=== PATIENT | female | born 1930 | race Caucasian/White ===

== ENCOUNTER 2016-11-27 19:42 | Inpatient (IN) | payer MEDICARE, BC ==
[~2016-11-27] VITALS: Ht 162.6 cm; Wt 59.1 kg
[2016-11-27 23:56] LABS: BASOPHILS 0.3 % (0.0-2.0); EOSINOPHILS 1.2 % (0-7); HEMATOCRIT 39.1 % (36.0-48.0); HEMOGLOBIN 13.5 g/dL (12-16); IMMATURE GRANULOCYTES 0.3 % (0-5); LYMPHOCYTES 17.1 % (15-50); MCHC 34.5 g/dL (31.0-37.0); MCV 86.9 fL (80.0-100.0); MEAN PLATELET VOLUME 10.9 fL (7.4-10.4); MONOCYTES 8.2 % (2-11); NEUTROPHILS 72.9 % (40-80); PLATELET COUNT 264 10x3/uL (130-400); WBC 7.7 10x3/uL (4.8-10.8)
[2016-11-28 00:03] LABS: APPEARANCE HAZY (CLEAR); BILIRUBIN NEGATIVE (NEGATIVE); COLOR YELLOW (YELLOW); GLUCOSE 1000 mg/dL (NEGATIVE); KETONE NEGATIVE (NEGATIVE); LEUKOCYTE ESTERASE NEGATIVE (NEGATIVE); NITRITE NEGATIVE (NEGATIVE); PROTEIN NEGATIVE (NEGATIVE); UROBILINOGEN NORMAL (NORMAL)
[2016-11-28 00:25] LABS: ALBUMIN 3.2 g/dL (3.4-5.0); ANION GAP 11.7 mmol/L (8-16); BILIRUBIN - TOTAL 0.99 mg/dL (0.2-1.3); CALCIUM 8.7 mg/dL (8.5-10.1); POTASSIUM - SERUM 3.7 mmol/L (3.5-5.1); PROTEIN - SERUM 7.1 g/dL (6.4-8.2)
--- NOTE | 2016-11-28 00:45 | NUR ---
RECEIVED TO ROOM 2126 ALERT AND ORIENTED X3 87 Y/O FEMALE UNDER DR LOJA CARE FOR IDDM AND RECENT FALLS VIA W/C FROM ER. ORIENTATION TO UNIT ROOM, BED, C/L, TV PHONE, BR GIVEN WITH UNDERSTANDING VERBALIZED. HOB UP SR UP X2, C/L IN REACH. ON FALL PRECAUTIONS HAS HAD RECENT FALLS AT HOME, BED ALARM IS ON AND WORKS, NONSKID SOCKS GIVEN. CONTINUE TO MONITOR.
[2016-11-28 02:57] VITALS: BP 184/74; BMI 21.2
[2016-11-28 05:45] VITALS: BP 151/63
[2016-11-28 07:57] VITALS: BP 183/63
--- NOTE | 2016-11-28 08:44 | NUR ---
CHANGED SCHEDULE OF PTS HOME LONG ACTING INSULIN R/T HER NORMALLY TAKING IT AT NIGHT ON HER HOME SCHEDULE. PROVIDED PT WITH 16 UNITS OF FAST ACTING INSULIN PER SS.
--- NOTE | 2016-11-28 09:00 | NUR ---
PT LEFT FLOOR FOR MRI VIA WHEELCHAIR.
--- NOTE | 2016-11-28 09:00 | NUR ---
0730-PT ALERT IN THE BED. IV TO LEFT FA. PT HAS NO NEEDS AT THIS TIME. WILL CONTINUE TO MONITOR.
--- NOTE | 2016-11-28 09:36 | NUR ---
Patient Name: RAJI DOW Admission Status: ER Accout number: [id number] Admission Date: 11-27-2016 : 1930 Admission Diagnosis: Attending: KALEB Current LOS: 1 Anticipated DC Date: TO BE DETERMINED Planned Disposition: TO BE DETERMINED Primary Insurance: MEDICARE A & B Discharge Planning Comments: CM RECEIVED ORDER FOR DISCHARGE PLANNING / ASSISTANCE AT HOME, ATTEMPTED TO MEET WITH PT FOR INITIAL ASSESSMENT OF DISCHARGE NEEDS. PT WAS NOT IN ROOM AT APPROXIMATELY 0930 HOURS. CM ADVISED BY STAFF PT IS OUT FOR MRI. CM TO ATTEMPT ASSESSMENT OF PT AT A LATER TIME. Napper Grinder: Austin Coyle
--- NOTE | 2016-11-28 10:17 | NUR ---
PT BACK ON UNIT FROM MRI VIA WHEELCHAIR.
[2016-11-28 11:27] VITALS: BP 150/63
[2016-11-28 13:19] VITALS: Ht 162.6 cm; Wt 59.1 kg
--- NOTE | 2016-11-28 14:32 | NUR ---
Patient Name: RAJI DOW Admission Status: ER Accout number: [id number] Admission Date: 11-27-2016 : 1930 Admission Diagnosis: Attending: KALEB Current LOS: 1 Anticipated DC Date:11-28-2016 Planned Disposition: Home with Home Health Primary Insurance: MEDICARE A & B PLANNED EXTERNAL PROVIDER: TO BE DETERMINED BY PATIENT Discharge Planning Comments: * Is the patient Alert and Oriented? Yes 0 * How many steps to enter\\exit or inside your home? RAMP 0 * PCP DR. LOJA 0 * Pharmacy [facility] 0 * Preadmission Environment Home Alone 0 * ADLs Independent 0 * Equipment Bedside Commode Glucometer Rolling Walker Shower Chair Walker Wheelchair 0 * Other Equipment [facility] - MEDICAL EQUIPMENT PROVIDER 0 * List name and contact numbers for known caregivers / representatives who currently or will assist patient after discharge: ELENA CAPPS, SON, YURI GIFFORD, DTR, HOUSTON RHODES, DTR, 0 * Community resources currently utilized Other 0 * Please name any agencies selected above. SENIOR TUNNEL WORK[employer] (AREA AGENCY ON AGING) 2 DAYS PER WEEK, 4 HOURS PER DAY 0 * Additional services required to return to the preadmission environment? Yes * Can the patient safely return to the preadmission environment? Yes 0 * Has this patient been hospitalized within the prior 30 days at any hospital? No 0 CM RECEIVED ORDER FOR ASSISTANCE AT HOME. CM MET WITH PT AND DAUGHTER, YURI, IN ROOM TO DISCUSS DISCHARGE PLANNING AND NEEDS. PT REPORTS LIVING AT HOME INDEPENDENTLY AND ALONE. PT HAS WALKER WITH WHEELS AND 4 WHEELED WALKER WITH SEAT AT HOME. 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 PT WOULD LIKE TO USE [facility] IF ANY FURTHER EQUIPMENT IS NEEDED. 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 PT HAS NO OUTSIDE SERVICES ASSISTING IN THE HOME. PT'S DAUGHTER CONCERNED ABOUT PT HAVING A FALL 5 WEEKS AGO AND THEN ANOTHER YESTERDAY AT HOME. DAUGHTER REPORTS THAT PT'S SON, ELENA, WILL HAVE HIS HOME READY FOR PT IN 3-4 WEEKS AND WILL MOVE PT TO [place] WITH HE AND HIS WHO WILL BE ABLE TO STAY AT HOME AND ASSIST PT NEEDED. PT REPORTS PLAN TO GO HOME UNTIL HER SON IS READY FOR HER. CM DISCUSSED AVAILABILITY OF HOME HEALTH, REHAB SERVICES AND MEDICAL EQUIPMENT. PT DOES NOT WANT TO CONSIDER INPATIENT REHAB OR SKILLED NUSING REHAB. PT WILL CONSIDER HOME HEALTH AND WILL THINK ABOUT WHAT COMPANY SHE WOULD LIKE TO USE. PT REPORTS FAMILY WILL PICK HER UP FOR DISCHARGE HOME. CM PROVIDED LISTING OF PERSONAL CARE AGENCIES AND EXPLAINED THAT INSURANCE WILL NOT PAY FOR THE QUILL CLEANER SERVICES; PT REPORTS BEING "POOR" AND CANNOT AFFORD THE SERVICES. CM PROVIDED PT WITH CHOICE LETTERS FOR [facility]ITIES AND HOME HEALTH FOR [facility] [place]. PT WILL NOT CONSIDER OUT OF HOME PLACEMENT, WOULD CONSIDER HOME HEALTH SERVICES. PT'S SON TO CONTINUE MAKING ARRANGEMENTS TO MOVE PT IN 3-4 WEEKS TO HIS HOME IN [place]. CM WAITING PT SELECTION OF HOME HEALTH COMPANY AND PHYSICIAN ORDERS. Foley Artist: Austin Coyle
[2016-11-28 15:35] VITALS: BP 117/50
--- NOTE | 2016-11-28 16:27 | HP ---
PATIENT: RAJI DOW MEDICAL RECORD: [id number] ACCOUNT: [id number] LOCATION:[facility] D2126 : 31 ADMISSION DATE: 11/27/16 HISTORY AND PHYSICAL EXAMINATION REASON FOR ADMISSION: Fall with back pain and uncontrolled diabetes. HISTORY OF PRESENT ILLNESS: The patient is an 86-year-old female with macular degeneration, diabetes mellitus and peripheral neuropathy. She had fallen in September 2014 and at [facility] was noted to have a slight L1 compression fracture. That has caused significant pain and difficulty with her ambulating. She was sent home to bed rest. I have seen her in followup and scheduled her for physical therapy, which she had begun last week. She was on therapy yesterday and felt like her blood sugar was low. She ate some crackers and in fact, it was over 580. Physical therapy referred her to me and I directed her to be admitted to the hospital for diabetic control and she refused. She was given 12 units of Humalog and was to be seen back this morning to follow up on her blood sugar. She said she was on her walker last night, was walking in her kitchen, she tripped over the rug, fell onto her back and is having increased lower back pain, above her previous L1 site. Denies radiculopathy. Additionally, she has had a psychosocial issue. She cannot really live at home currently due to her disabilities. She wants to she says and in her home. Her daughters both living here, but work time study statistician and cannot care for her. She therefore elected to move to [place] in the next 2-3 weeks to live with her son and [id number]. [id number] does not work, so she could help take care of her. That has been a source of stress for her. She did tell me yesterday that she just did not really care if she live or . She has no suicidal plan. She has never been suicidal. She has a long history of depression and is currently on Paxil for that. In the ED, her blood sugar was in the low 200s. 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 PAST SURGICAL HISTORY: She has had bilateral cataract surgery and tonsillectomy. FAMILY HISTORY: Mother at 79 due to colon cancer. Father elderly age from prostate cancer. ALLERGIES: CODEINE, PENICILLIN, AND SULFA. HOME MEDICATIONS: Toujeo SoloStar insulin 42 units subQ q.a.m., losartan 100 mg p.o. daily, Paxil 20 mg p.o. daily, levothyroxine 50 mcg p.o. before breakfast, amlodipine 5 mg daily, glyburide 5 mg 2 tabs b.i.d. p.c., metformin 500 mg 2 tabs by mouth b.i.d., and nitrofurantoin 100 mg tablet daily. SOCIAL HISTORY: Nonsmoker, nondrinker, lives alone, but does have 2 daughters living in town. She relies on friends to get her to and from the doctor. REVIEW OF SYSTEMS: HISTORY AND PHYSICAL [id number] RAJI DOW GENERAL: She has had fatigue without fever and no weight loss. HEENT: No recent new visual change, but is nearly blind in her left eye, has poor vision on the right. Denies hearing difficulty or speech problems. RESPIRATORY: Denies shortness of breath, cough, or sputum production. CARDIAC: No exertional chest pain, claudication, or edema. GASTROINTESTINAL: No nausea, vomiting, change in stools, or blood per rectum. GENITOURINARY: No incontinence or dysuria. GYNECOLOGIC: No vaginal bleeding. 3. MUSCULOSKELETAL: Has significant pain in her upper lumbar spine, worse with ambulating. NEUROLOGIC: Remote history of stroke without residual except for poor memory. She admits to poor balance. She has a lot to deal with her neuropathy in her legs and feet and her vision problems. PSYCHIATRIC: She admits to depressed mood and says she really does not care if she lives or dies. PHYSICAL EXAMINATION: VITAL SIGNS: Temperature 99.1 Fahrenheit orally, pulse of 80 and regular, respirations are 18, blood pressure 165/66 with a sat of 96% on room air. HEENT: Normocephalic. Eyes are clear with lens implants noted OU. Sclerae nonicteric. NECK: Supple, without bruits noted. No thyromegaly. CHEST: Clear without wheeze or rales or chest wall tenderness. HEART: Regular rate with I/ systolic ejection murmur in the aortic area. BACK: Shows back to be fairly straight with some pain in the L1-L2 paralumbar distribution, right greater than left. No bruising is noted. ABDOMEN: Soft. No organomegaly or tenderness. GYNECOLOGIC: Deferred. EXTREMITIES: No CC&E. She has negative straight leg bilaterally. Knee showed crepitus on flexion and extension, but no effusion or heat. NEUROLOGIC: She is oriented to person and place, but not time. She cannot subtract serial sevens. Motor and sensory is intact grossly, but she walks with a walker in a forward position and is very unsteady. PSYCHIATRIC: She admits to depressed mood and says she does not care if she lives or dies. She denies any suicidal thoughts or ideation. LABORATORY DATA: Blood sugars 291, was 580 in the office yesterday. Pertinent lab, white count 7700 with an H&H of 13.5 and 39.1, and neutrophils are 72.9. Potassium is 3.7, BUN and creatinine are 29 and 1.0. Glucose as mentioned above. Liver functions are normal. Albumin is low at 3.2. Urinalysis shows glycosuria, otherwise unremarkable. DIAGNOSTIC DATA: X-rays of the thoracic and lumbar spine are currently pending. She has known previous L1 compression fracture. ASSESSMENT: 1. Multiple falls with L1 compression fracture. 2. Macular degeneration affecting balance. 3. Diabetic peripheral neuropathy affecting gait and increasing fall risk. 4. Depression. 5. Uncontrolled diabetes mellitus, type 2. 6. Hypertension. 7. Hypothyroidism. PLAN: She will be hospitalized, placed on strict diabetic diet, diabetic HISTORY AND PHYSICAL [id number] RAJI DOW education, and sliding scale insulin. Physical therapy consult. Review x-rays with radiology, further workup to follow. We will also get psychiatric evaluation because of her depressive symptoms and mention of hopelessness. I have talked to one of her daughters concerning her social situation. She does confirm she is planning to move at [place] because of better family assistance there. TRANSINT:[id number] Voice Confirmation ID: [id number] DOCUMENT ID: [id number] SYLVIA LOJA MD at 1627 CC: [id number] DICTATION DATE: 11/28/16 3259 STEEL TURNER: 11/28/16 0904 ADM IN [facility] [address] [place] [address]
[2016-11-28] MEDS ORDERED: COZAAR100 MG PO (17:48)
[2016-11-28] MEDS ORDERED: TOUJEO SOL300 UNIT/1 SC (17:48)
[2016-11-28] MEDS ORDERED: NORVASC5 MG PO (17:49)
[2016-11-28] MEDS ORDERED: CYMBALTA60 MG PO (17:49)
--- NOTE | 2016-11-28 17:51 | NUR ---
D/C PTS PAXIL PER ORDER. ADDED NORVASC 5MG DAILY PER VERBAL ORDER AND PT NORMALLY TAKES AT HOME. MED REC COMPLETED AND MOST ACCURATE PER PATIENTS KNOWLEDGE. PT SITTING UP ON EDGE OF BED AND DENIES ANY PAIN OR CURRENT NEEDS AT THIS TIME. CL IN REACH, BED IN LOWEST, SIDE RAILS X2. WILL CPOC.
--- NOTE | 2016-11-28 19:38 | NUR ---
RESUMED CARE OF PT, LYING IN BED RESPIRAITONS EVEN AND UNLABORED ON ROOM AIR. LEFT WRIST SALINE LOCKED. CALL LIGHT IN REACH. WILL CONTINUE TO MONITOR. SEE NURSE ASSESSMENT.
[2016-11-28 20:24] VITALS: BP 174/71
--- NOTE | 2016-11-28 21:55 | CN ---
PATIENT NAME:RAJI DOW MEDICAL RECORD: [id number] : 31 LOCATION:[facility] D.2126 ADMIT DATE: 11/27/16 ACCOUNT: [id number] CONSULTING PHYSICIAN: ETTA BARNEY III, MD REFERRING PHYSICIAN: SYLVIA LOJA MD DATE OF CONSULTATION: 11/28/2016 FINDINGS: This is one of numerous lifetime psychiatric contacts for this 86-year-old single white female. This patient was admitted earlier today with complications from her diabetes and recent fall. She has multiple ongoing medical problems including peripheral neuropathy, hypertension, hypothyroidism and so forth. Consultation was requested because the patient is dealing with chronic depression, which has been exacerbated by recent events. Because of her disability, the patient is facing the prospect of moving away from [place] where she has lived her entire adult life. She has plans to move in with her son who lives in [place]. She has 2 daughters that live in [place], but both are employed air pollution control engineer and cannot be available for constant monitoring such as what she requires. The patient has as mentioned she has had falls. She has difficulty with controlling her blood sugar and other ongoing issues as well. The patient has been under psychiatric care for many years. In fact, I saw her as an outpatient in the . Currently, she is being treated with Paxil, but states that she feels that she is not receiving any benefit from it whatsoever. She does admit to thoughts of . She states that she would not harm herself, but does express a passive wish to soon simply because of her numerous difficulties. She has expressions of hopelessness and helplessness and states that she does not take much pleasure in things anymore. She also complains of poor concentration and sleep disturbance. On exam, the patient's mood is dysphoric. Affect is somewhat hard and brittle. Speech is fairly fluent. Content of thought as noted above. 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 DIAGNOSTIC IMPRESSION: AXIS I: Major depressive disorder -- recurrent. PLAN: 1. We will discontinue Paxil and begin Cymbalta 30 mg daily. This is a dual action antidepressant and may afford her some benefit. 2. We will follow with you as needed. TRANSINT:[id number] Voice Confirmation ID: [id number] DOCUMENT ID: [id number] CONSULT REPORT [id number] RAJI DOW III, ETTA Josue MD at 2155 CC: [id number] DICTATION DATE: 11/28/16 1158 CYTOGENETIC TECHNICIAN: 11/28/16 1323 ADM IN [facility] [address] [place] [id number]
[2016-11-29 00:14] VITALS: BP 121/58
--- NOTE | 2016-11-29 00:36 | NUR ---
PLASTIC BOAT PATCHER AT BEDSIDE TO OBTAIN VITALS, CALL LIGHT IN REACH. WILL CONTINUE WITH PLAN OF CARE.
--- NOTE | 2016-11-29 03:12 | NUR ---
LYING IN BED WITH EYES CLOSED, CALL LIGHT IN REACH. WILL CONTINUE TO MONITOR.
[2016-11-29 04:44] VITALS: BP 153/70
--- NOTE | 2016-11-29 06:35 | NUR ---
NO CHANGES FROM PREVIOUS ASSESSMENT, CALL LIGHT IN REACH. WILL CONTINUE TO MONITOR.
--- NOTE | 2016-11-29 07:44 | NUR ---
ASSESSMENT COMPLETED. UP IN BEDSIDE CHAIR. DENIES ANY NEEDS EXCEPT WANTING SOMEONE TO SIT IN ROOM WITH HER. LEFT WRIST SL. NO TELEMERTY ON. WILL MONITOR
--- NOTE | 2016-11-29 07:44 | NUR ---
UP SOB WITH CALL LIGHT IN REACH. JEFE NEEDS AT THIS TIME. WILL MONITOR.
[2016-11-29 08:26] VITALS: BP 171/61
[2016-11-29 11:56] VITALS: BP 188/62
--- NOTE | 2016-11-29 14:43 | NUR ---
Patient Name: RAJI DOW Encounter No: [id number] : 1930 Primary Insurance: MEDICARE A & B Anticipated DC Date: 11-29-2016 Planned Disposition: Inpatient Rehab External Planned Provider: [facility] INPATIENT REHAB DCP follow-up note: CM RECEIVED SPOKE TO DR. LOJA WHO REPORTS PT IS WILLING TO GO TO INPATIENT REHAB AT [facility] AND HE WOULD LIKE TO SEND HER. CM SPOKE TO PT AND DAUGHTER IN ROOM. PT REPORTS WILLINGNESS FOR INPATIENT REHAB AT [place]. IMPORTANT MESSAGE FROM MEDICARE PROVIDED AND EXPLAINED. CM NOTIFIED SONIA OF INPATIENT REHAB OF CONSULT ORDER AND INPATIENT REHAB PRESCREENING ORDER. CM WAITING COMPLETION OF INPATIENT REHAB PRESCREENING AND ADMISSION DETERMINATION FROM [facility] INPATIENT REHAB. Austin Coyle, CASE MANAGEMENT
[2016-11-29 15:21] VITALS: BP 142/61
[2016-11-29] MEDS ORDERED: CARDURA2 MG PO (17:26)
[2016-11-29] MEDS ORDERED: SYNTHROID50 MCG PO (17:26)
[2016-11-29] MEDS ORDERED: PATOWN SC (17:27)
[2016-11-29] MEDS ORDERED: XANAX0.25 MG PO (17:27)
--- NOTE | 2016-11-29 19:00 | NUR ---
LYING QUIETLY. NO DISTRESS NOTED. WILL MONITOR
[2016-11-29 21:33] VITALS: BP 109/43
[2016-11-30 01:06] VITALS: BP 112/45
[2016-11-30 05:24] VITALS: BP 101/48
--- NOTE | 2016-11-30 07:33 | NUR ---
ASSESSMENT COMPLETED. LEFT WRIST SL. AWAKE AND ALERT. PT GETS UP WITH ASSIST. DENIES ANY NEEDS. CALL LIGHT IN REACH WITH SR UP. WILL MONITOR
--- NOTE | 2016-11-30 11:57 | NUR ---
BS 267. TREATED. DENIES ANY NEEDS. CALL LIGHT IN REACH WITH SR UP.
[2016-11-30 12:00] VITALS: BP 119/45
[2016-11-30] MEDS ORDERED: HUMULIN R100 U/ML SC (13:04)
--- NOTE | 2016-11-30 13:51 | NUR ---
PT DISCHARGED TO REHAB. IV DCD WITH TIP INTACT. REPORT GIVEN TO VADIM JEONG. TO REHAB PER WHEELCHAIR
[2016-11-30] MEDS ORDERED: LANTUS INSULIN10 ML SQ (14:44)
--- NOTE | 2016-12-01 08:03 | DS ---
PATIENT:RAJI DOW :[birth year] MEDICAL RECORD: [id number] DISCHARGE SUMMARY ADMISSION DATE: 11/28/16 DISCHARGE DATE: 11/30/16 DISCHARGE DIAGNOSES: 1. Subacute lumbar 1 compression fracture. 2. Intractable pain. 3. Frequent falls. 4. Uncontrolled diabetes mellitus. 5. ____ hypertension. 6. Depression with suicidal ideation. HOSPITAL COURSE: An 86-year-old female that had a lumbar compression fracture, initially diagnosed at [facility] 6 weeks ago. There is a 50% compression fracture. She deferred IR treatment. She had been in physical therapy because of increasing pain and had been much more despondent with depression and had not been taking care of her diabetes. She is in our office the day before admission with blood sugar of 580, postprandial. We gave her 12 units of regular insulin, attempted to admit her then, but she refused. She has been having intractable pain at that time and had been in physical therapy. That night, she tripped and fell again and had relented to come into the hospital. Blood sugar was over 200. She was placed on sliding scale insulin. She placed at bed rest, given Toradol for pain. This patient related that she did not wish to live any further. She is planning to live with her son Layton, but the fall had preclude that. She has a longstanding history of depression, therefore, psychiatric evaluation was undertaken with Dr. Lázaro Small. He has seen the patient previously, reviewed her long history of depression and switched from Paxil to Cymbalta. The patient's back pain is still moderately severe. She can walk, but has extreme fall risk and is very weak. Due to her high fall risk and recent fracture, MRI was obtained confirming the 50% L1 compression fracture and no other fractures. She has been accepted to rehab. Her family is strongly supportive of this. She will be in rehab at discharge and will go to live with her son in [place], [place]. DISCHARGE MEDICATIONS: Cardura 2 mg p.o. b.i.d., Xanax 0.25 q.4 p.r.n. anxiety, Synthroid 50 mcg p.o. 30 minutes a.c. breakfast, Cozaar 100 mg a day, Cymbalta 60 mg a day, and Norvasc 5 mg p.o. daily. ACTIVITY: Progress as tolerated. DIET: ADA diet. Continue fingerstick blood sugars a.c. and h.s. with sliding scale and rehab. TRANSINT:[id number] Voice Confirmation ID: [id number] DOCUMENT ID: [id number] SYLVIA LOJA MD at 0803 CC: [id number] DICTATION DATE: 11/29/16 1730 SUPERVISOR PREPRESS: 11/30/16 1113 DIS IN 11/30/16 [facility] [address] [place] [address]
== END 2016-11-30 13:53 | DRG 638 ==
LOC: D.ER 19:42 → D.M2 23:10 → OBSVTIME 23:10 → D.M2 23:10
PROVIDERS: Physician Assistant; ADMIT Family Medicine
DX: E11.65 Type 2 diabetes mellitus with hyperglycemia (principal); F33.9 Major depressive disorder, recurrent, unspecified; M48.56XA Collapsed vertebra, not elsewhere classified, lumbar region, initial encounter for fracture; E11.40 Type 2 diabetes mellitus with diabetic neuropathy, unspecified; Z79.4 Long term (current) use of insulin; H35.30 Unspecified macular degeneration; E78.5 Hyperlipidemia, unspecified; I10 Essential (primary) hypertension; E03.9 Hypothyroidism, unspecified; M81.0 Age-related osteoporosis without current pathological fracture; K21.9 Gastro-esophageal reflux disease without esophagitis; Z91.81 History of falling; Z86.73 Personal history of transient ischemic attack (TIA), and cerebral infarction without residual deficits

== ENCOUNTER 2016-11-30 11:55 | Inpatient (IN) | payer MEDICARE, BC ==
[~2016-11-30] VITALS: Ht 162.6 cm; Wt 55.8 kg
[~2016-11-30 11:55] MED LIST: CARDURA2 MG PO; COZAAR100 MG PO; CYMBALTA60 MG PO; NORVASC5 MG PO; PATOWN SC; SYNTHROID50 MCG PO; TOUJEO SOL300 UNIT/1 SC; XANAX0.25 MG PO
[2016-11-30] MEDS ORDERED: HUMULIN R100 U/ML SC (13:04)
[2016-11-30 13:59] VITALS: BP 103/64
--- NOTE | 2016-11-30 14:10 | NUR ---
PT WAS ADMITTED TO REHAB UNIT ROOM 1113A BED. HOSPITAL STAFF BROUGHT PT IN WHEELCHAIR. PT IS STABLE WITH NO SIGNS OF ANY DISCOMFORT OR DISTRESS. VITAL SIGNS UPON ADMISSION WERE; TEMP. 97.9, PULSE 79, RESP. 15, B/P 103/64, 02SAT 97%. PT IS ALERT AND ORIENTED X 3. WILL BE MONITORING HER AND ASSISTING PRN WITH ADL'S.
[2016-11-30] MEDS ORDERED: LANTUS INSULIN10 ML SQ (14:44)
[2016-11-30 19:38] VITALS: BP 134/51
--- NOTE | 2016-11-30 20:40 | NUR ---
PT. IN BED WITH HOB UP FOR COMFORT WITH EYES CLOSED AND RESP. EVEN. PT. AWAKENS EASILY FOR ASSESSMENT. NO VOICED NEEDS AT THIS TIME AND HER CALL LIGHT IS WITHIN REACH.
--- NOTE | 2016-11-30 23:06 | NUR ---
PT. IN BED WITH HOB SLIGHTLY ELEVATED. EYES ARE CLOSED AND RESP. EVEN. CALL LIGHT WITHIN REACH.
--- NOTE | 2016-12-01 03:07 | NUR ---
PT. IN BED WITH HOB UP FOR COMFORT. EYES ARE CLOSED AND RESP. DEEP AND EVEN. CALL LIGHT REMAINS WITHIN HER REACH.
[2016-12-01 07:00] VITALS: BP 127/58
--- NOTE | 2016-12-01 08:15 | NUR ---
PT RESTING IN BED WITH EYES OPEN CALL LIGHT IN REACH NO PROBLEMS WILL MONITER
[2016-12-01 12:31] VITALS: Ht 162.6 cm; Wt 55.8 kg
--- NOTE | 2016-12-01 14:45 | NUR ---
PT RESTING IN BED WITH EYES OPEN CALL LIGHT IN REACH WILL MONITER
--- NOTE | 2016-12-01 18:15 | NUR ---
PT RESTING IN BED WITH EYES OPEN CALL LIGHT IN REACH NO PROBLEMS WILL MONITER
[2016-12-01 19:29] VITALS: BP 142/60
--- NOTE | 2016-12-01 19:40 | NUR ---
assisted pt to bathroom, sba. no s/s of acute distress, respirations regular and unlabored, pt conversive. requests an hs snack.
--- NOTE | 2016-12-02 00:10 | NUR ---
pt awake and states she is feeling not quite right, reviewed symptoms and pt stated she believes it is the pain in shoulder is why she woke up and that the light was off, turned on the light and medicated per request for pain
--- NOTE | 2016-12-02 01:00 | NUR ---
resting quietly with eyes closed, no s/s of acute distress. room light on as requested.
--- NOTE | 2016-12-02 04:07 | NUR ---
PT. IN BED AND LYING ON HER STOMACH WITH EYES CLOSED AND RESP. DEEP AND EVEN. PT. PREFERS TO SLEEP WITH THE LIGHT ON ABOVE HER BED. CALL LIGHT WITHIN REACH.
[2016-12-02 07:00] VITALS: BP 133/42
--- NOTE | 2016-12-02 07:30 | NUR ---
RESTING QUIETLY IN BED. CALL LIGHT IN REACH
--- NOTE | 2016-12-02 08:15 | NUR ---
PT EATING BREAKFAST ON SIDE OF BED CALL LIGHT IN REACH NO PROBLEMS WILL MONITER
--- NOTE | 2016-12-02 14:43 | NUR ---
PT RESTING IN BED WITH EYES OPEN CALL LIGHT IN REACH NO PROBLEMS WILL MONITER
--- NOTE | 2016-12-02 18:41 | NUR ---
PT RESTING IN BED WITH EYES OPEN CALL LIGHT IN REACH WILL MONITER
--- NOTE | 2016-12-02 19:30 | NUR ---
PT. IN BED WITH HOB SLIGHTLY ELEVATED AND IS WATCHING TV. ASSESSMENT COMPLETED AFTER ASSISTING PT. TO THE BR TO URINATE. PT. C/O HIP PAIN AND WOULD LIKE A PAIN PILL WITH TONIGHT'S MEDICATIONS. PT. ALSO REPORTS S/S INCREASE ANXIETY. PT. STATES SHE HAS HAD ANXIETY FOR YEARS BUT IS NOT MEDICATED FOR IT. INSTRUCTED PT. THAT SHE NEEDS TO TELL THE DOCTOR AND HER PCP, THE NEXT TIME SHE SEES THEM, ESPECIALLY IF THE EPISODES INCREASE IN FREQUENCY AND DURATION. PT. STATES SHE WILL. CALL LIGHT WITHIN REACH.
[2016-12-02 20:00] VITALS: BP 144/51
--- NOTE | 2016-12-02 23:02 | NUR ---
PT. IN BED AND LYING ON HER STOMACH TO SLEEP. EYES ARE CLOSED AND RESP. EVEN. PT. SLEEPS WITH HER BED LIGHT ON AT HER REQUEST. CALL LIGHT WITHIN REACH.
--- NOTE | 2016-12-03 04:50 | NUR ---
PT. IN BED WITH HOB UP FOR COMFORT WITH EYES CLOSED AND RESP. EVEN. CALL LIGHT WITHIN REACH.
--- NOTE | 2016-12-03 04:55 | NUR ---
PT. IN BED SLEEPING ON HER STOMACH. EYES CLOSED AND RESP. EVEN. CALL LIGHT WITHIN REACH.
[2016-12-03 07:25] LABS: BASOPHILS 0.4 % (0.0-2.0); EOSINOPHILS 3.8 % (0-7); HEMATOCRIT 39.6 % (36.0-48.0); HEMOGLOBIN 13.2 g/dL (12-16); IMMATURE GRANULOCYTES 0.2 % (0-5); LYMPHOCYTES 21.3 % (15-50); MCH 29.7 pg (26.0-34.0); MCHC 33.3 g/dL (31.0-37.0); MEAN PLATELET VOLUME 11.2 fL (7.4-10.4); MONOCYTES 8.9 % (2-11); NEUTROPHILS 65.4 % (40-80); PLATELET COUNT 224 10x3/uL (130-400); RBC 4.45 10x6/uL (4.00-5.40); RDW 13.2 % (11.5-14.5); WBC 4.7 10x3/uL (4.8-10.8)
[2016-12-03 07:34] LABS: CALC OSMOLALITY 283 mosm/kg (275-300); CALCIUM 9.1 mg/dL (8.5-10.1); CARBON DIOXIDE 28.1 mmol/L (21.0-32.0); CHLORIDE - SERUM 103 mmol/L (98-107); CREATININE - SERUM 0.6 mg/dL (0.6-1.3); POTASSIUM - SERUM 4.6 mmol/L (3.5-5.1); SODIUM 139 mmol/L (136-145); UREA NITROGEN 17 mg/dL (7-18); eGFR NON AFRICAN AMERICAN > 90 mL/min (90-120)
[2016-12-03 07:35] LABS: GLUCOSE 162 mg/dL (74-106)
[2016-12-03 08:00] VITALS: BP 170/67
--- NOTE | 2016-12-03 08:28 | NUR ---
PATIENT SITTING ON THE SIDE OF THE BED TO EAT BREAKFAST. DR. Liat AMIN INTO SEE PATIENT. NEW ORDERS RECEIVED
--- NOTE | 2016-12-03 10:50 | NUR ---
PATIENT DOWN IN REHAB ROOM. WORKING WITH PHYSICAL THERAPIST. DENIES ANY PAIN/DISC AT THIS TIME
--- NOTE | 2016-12-03 12:00 | NUR ---
GLUCOSE LEVEL 281. TEN UNITS OF SLIDING SCALE INSULIN GIVEN PER ORDER
--- NOTE | 2016-12-03 14:12 | NUR ---
PATIENT IS ALERT WITH SOME FORGETFULNESS NOTED. PATIENT IS A STAND BY ASST WITH WHEELED WALKER. WEARS BRIEF. STRESS INCONTINANCE. WOUND CONSULT FOR RIGHT FOOT, MACULES WITH RED AROUND AREA. STATES SHE WAS BITTEN BY FIRE ANTS.
--- NOTE | 2016-12-03 17:22 | NUR ---
GLUCOSE LEVEL 267. TEN UNITS OF SLIDING SCALE INSULIN GIVEN
--- NOTE | 2016-12-03 19:30 | NUR ---
PT RESTING, EYES CLOSED. AWOKE EASILY FOR ASSESSMENT, DENIES NEEDS. WCTM. BED LOW. CL IN REACH.
--- NOTE | 2016-12-03 20:21 | NUR ---
PT HS MEDS ADMINISTERED. PT ASSISTED TO BR. PT BACK IN BED NAD DENIES FURHTER NEEDS. WCTM. BED LOW. CLIN REACH.
[2016-12-03 20:45] VITALS: BP 175/77
--- NOTE | 2016-12-03 22:09 | NUR ---
PT RESTING, EYES CLOSED. BED LOW. CL IN REACH.
--- NOTE | 2016-12-03 22:25 | NUR ---
PT REQ AND REC'D PRN ULTRAM FOR 10/10 BACK/SHOULDER/HIP PAIN. WCTM. BED LOW. C GRACIE LANDRUM.
--- NOTE | 2016-12-04 00:35 | NUR ---
ASSISTED PT TO BR. PT BACK IN BED AND DENEIS FURHTER NEEDS. BED LOW. CL IN [facility].
--- NOTE | 2016-12-04 03:15 | NUR ---
ASSISTED PT TO BR. PT BACK IN BED AND DENIES FURHTER NEEDS. WCTM. BED LOW. CLIN REACH.
[2016-12-04 08:37] VITALS: BP 174/67
--- NOTE | 2016-12-04 08:55 | NUR ---
INTRODUCED SELF TO PT, MORNING MEDS GIVEN, PT TOLERATED WELL, WILL CONTINUE TO MONITOR, CALL LIGHT WITHIN REACH.
--- NOTE | 2016-12-04 11:35 | NUR ---
AFTERNOON MEDS GIVEN, PT TOLERATED WELL, PT IN THERAPY.
--- NOTE | 2016-12-04 13:06 | RHP ---
PATIENT: RAJI DOW MEDICAL RECORD: [id number] ACCOUNT: [id number] LOCATION[facility] : 31 ADMISSION DATE: 11/30/16 REHABILITATION HISTORY AND PHYSICAL EXAMINATION POST ADMISSION PHYSICIAN EXAMINATION DATE OF ADMISSION: 11/30/2016 ADMITTING DIAGNOSES: Compression fracture with bony edema, central disc perfusion at T1-T2 with canal narrowing and neural foraminal narrowing and canal stenosis at L1 through L5. HISTORY OF PRESENT ILLNESS: The patient is an 86-year-old female patient admitted with an L1 compression fracture and hyperglycemia. She has a history of macular degeneration, diabetes and peripheral neuropathy. She had fallen and at [facility] was noted to have a slight L1 compression fracture that was causing significant pain and difficulty with ambulating. She was sent home bed rest. She was sent for a followup and scheduled for physical therapy, which began last week. She was in therapy on November 26 and felt like her blood sugar was low, she had some crackers, in fact it was over 580. Physical therapy referred her to her PCP, Dr. Purvis, who wanted to admit her to the hospital for diabetic control and she refused. She was given 12 units of Humalog and was seen back this morning, the morning of admission, followed up her blood sugar that evening. She had been on a walker and was walking to the kitchen, she tripped over a rug, fell on to her back and started having increasing lower back pain at her previous L1 site. Denied radiculopathy. Additionally, she has had a psychosocial issue. She cannot really live at home currently due to her disabilities. She has previously was able to live alone, perform ADLs and walk with use of a rolling walker. Currently, secondary to her back pain and her eyesight has gotten so bad, she is moderate to max assist for ADLs and mobility. She wants to move to [place], [place] with her son, but needs to have her pain controlled and be able to perform her ADLs and ambulate with moderate independence assist while using a rolling walker. The only way that we can be able to get her do that is to get her here in rehab and work with her on that. COMORBIDITIES: In this patient include diabetes, hyperglycemia, peripheral neuropathy, hypothyroidism, macular degeneration, glaucoma, fatigue, weakness, major depressive disorder, hypertension, arthritis, frequent falls, previous CVA, osteoporosis and hyperlipidemia. PAST MEDICAL HISTORY: Includes multiple falls with compression fracture, macular degeneration, diabetic neuropathy, depression, uncontrolled diabetes, hypertension and hypothyroidism. PAST SURGICAL HISTORY: None. ALLERGIES: PENICILLIN, CODEINE AND SULFA. CURRENT MEDICATIONS: Include losartan 100 mg daily, Synthroid 50 mcg daily, Cymbalta 60 mg daily and amlodipine 5 mg daily. She is on Lantus 42 units daily. She is on intermittent low-resistant sliding scale. She is on Cardura 2 mg b.i.d. and alprazolam 0.25 mg q.4 hours p.r.n. HABITS: No alcohol or tobacco use. HISTORY AND PHYSICAL [id number] RAJI DOW FAMILY HISTORY: Noncontributory. SOCIAL HISTORY: The patient once again wants to move to [place] to live with her son and hopefully get back to some type of functional state that she can do this. REVIEW OF SYSTEMS: GENERAL: Does complain of some weakness. HEENT: Denies cold, cough, or congestion. CARDIOVASCULAR: Denies chest pain. PHYSICAL EXAMINATION: VITAL SIGNS: Stable, afebrile. GENERAL: An elderly female in no acute distress, alert upon exam. HEENT: Normocephalic and atraumatic. Mucosa moist. NECK: Supple. No lymphadenopathy. LUNGS: Clear at this time. HEART: Regular rate and rhythm. ABDOMEN: Benign. EXTREMITIES: No clubbing, cyanosis, or edema. NEUROLOGIC: She does have pain even with slight movement. ASSESSMENT: This is an 86-year-old female patient admitted to rehab with a working diagnosis of L1 compression fracture with bony edema, also some central disc perfusion and canal narrowing on her back. The patient has potential to make improvement. We instituted the following multidisciplinary therapies including to, but not limited to, physical, occupational, respiratory, speech, nutritional services, prosthetics and orthotics. Given her complex condition and risk for more complications, rehabilitation services cannot be provided at a low level of care such as a [place] facility. PLAN: 1. Admit to [facility] rehab for intensive inpatient therapy to include the following disciplines: A. Physical therapy to improve gait, all transfer skills and bed mobility to a modified independent level. B. Occupational therapy to improve activities of daily living to a modified independent level. C. Case management to assist with discharge planning and placement options. D. Nutrition to assist with nutritional needs. E. Rehabilitation nursing to assist in monitoring the patient's underlying medical conditions and to assist with any type of bowel or bladder management. 2. The patient's current medication and medical care will be continued. 3. The patient will be placed on standard fall precautions. 4. The patient's estimated length of stay is approximately 7-10 days. 5. Discuss this patient during care team staff meeting this week. 6. I am going to go ahead and check thyroid, calcium and also vitamin D levels and treat these appropriately. TRANSINT:[id number] Voice Confirmation ID: [id number] DOCUMENT ID: [id number] HISTORY AND PHYSICAL [id number] RAJI DOW SCOTT MD at 1306 CC: [id number] DICTATION DATE: 12/01/16 1352 TOOL MAKER: 12/01/16 1717 ADM IN [facility] [address] [place] [address]
--- NOTE | 2016-12-04 14:00 | NUR ---
Nutrition Follow Up: Pt reported that her appetite is great. She said that she has been ordering and drinking Glucerna. Pt is eating 83% meal avg on a diabetic diet. Wt stable. +BM 12/01/16. Labs noted - Glucose elevated. Meds noted including Lantus, Humalog. Rec continue current diet. Will continue to provide selective menus and honor food preferences. RD following.
--- NOTE | 2016-12-04 17:21 | NUR ---
PT RESTING IN BED WITH SR X2. RESP EVEN AND UNLAB. DENIES PAIN OR DISCOMFORT CL AT SIDE
--- NOTE | 2016-12-04 18:49 | NUR ---
CHECKED PT FSBS, 368, INSULIN GIVEN, TOLD PT TO PLEASE CALL IF ANY CONCERNS, DO NOT GET UP WITHOUT ASSISTANCE, WILL CONTINUE TO MONITOR, CALL LIGHT WITHIN REACH.
[2016-12-04 19:16] VITALS: BP 145/64
--- NOTE | 2016-12-04 20:07 | NUR ---
PT HS MEDS ADMINISTERED. PT FSBS 357. LANTUS AND 16 UNITS OF HUMALOG GIVEN. WCTM. BED LOW. CL IN REACH.
--- NOTE | 2016-12-04 23:03 | NUR ---
PT RESTING, EYE CLOSED. BED LOW. CL IN REACH. WCTM.
--- NOTE | 2016-12-05 01:15 | NUR ---
PT ASSISTED TO BR. PT BACK IN BED RESTING AND DENIES NEEDS. BED LOW. CL IN REACH.
--- NOTE | 2016-12-05 03:05 | NUR ---
PT ASSISTED TO BR. PT BACK IN BED RESTING AND DENIES NEEDS. BED LOW. CL IN REACH.
--- NOTE | 2016-12-05 05:48 | NUR ---
PT AM MEDS ADMINISTERED. PT DENIES NEEDS. WCTM. BED LOW. CL IN REACH.
[2016-12-05 06:28] LABS: BASOPHILS 0.4 % (0.0-2.0); EOSINOPHILS 3.4 % (0-7); HEMATOCRIT 37.5 % (36.0-48.0); HEMOGLOBIN 12.1 g/dL (12-16); LYMPHOCYTES 20.8 % (15-50); MCH 28.9 pg (26.0-34.0); MCHC 32.3 g/dL (31.0-37.0); MCV 89.7 fL (80.0-100.0); MEAN PLATELET VOLUME 11.5 fL (7.4-10.4); MONOCYTES 9.7 % (2-11); NEUTROPHILS 65.7 % (40-80); PLATELET COUNT 253 10x3/uL (130-400); RBC 4.18 10x6/uL (4.00-5.40); RDW 13.3 % (11.5-14.5); WBC 5.1 10x3/uL (4.8-10.8)
[2016-12-05 06:42] LABS: CALC OSMOLALITY 280 mosm/kg (275-300); CARBON DIOXIDE 30.5 mmol/L (21.0-32.0); CHLORIDE - SERUM 103 mmol/L (98-107); CREATININE - SERUM 0.7 mg/dL (0.6-1.3); GLUCOSE 178 mg/dL (74-106); POTASSIUM - SERUM 4.3 mmol/L (3.5-5.1); SODIUM 137 mmol/L (136-145); UREA NITROGEN 20 mg/dL (7-18); eGFR NON AFRICAN AMERICAN 84 mL/min (90-120)
--- NOTE | 2016-12-05 07:59 | NUR ---
PATIENT ALERT/ORIENT X4 WITH SOME FORGETFULNESS NOTED. SITTING UP AT BEDSIDE TO EAT BREAKFAST. CALL LIGHT WITHIN REACH. BED ALARM ON. VOICES NO NEEDS AT THIS TIME
[2016-12-05 09:02] VITALS: BP 176/73
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
--- NOTE | 2016-12-05 10:20 | NUR ---
PATIENT IN REHAB ROOM. WORKING WITH PHYSICAL THERAPIST. DENIES ANY PAIN/DISC AT THIS TIME
--- NOTE | 2016-12-05 12:09 | NUR ---
GLUCOSE LEVEL 224. EIGHT UNITS OF SLIDING SCALE INSULIN GIVEN
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
--- NOTE | 2016-12-05 16:53 | NUR ---
CARE TEAM MEETING: TENATIVE DISCHARGE DATE IS 12/12/16 TO HER HOME. WILL CONTINUE TO FOLLOW WITH PATIENT UNTIL DISCHARGED
--- NOTE | 2016-12-05 16:59 | NUR ---
GLUCOSE LEVEL 294. TEN UNITS OF SLIDING SCALE INSULIN GIVEN
[2016-12-05 19:54] VITALS: BP 161/63
--- NOTE | 2016-12-05 22:39 | NUR ---
PT. IN BED LYING ON HER LEFT SIDE WITH EYES CLOSED AND RESP. EVEN. PT. SLEEPS WITH ABOVE BED LIGHT. CALL LIGHT WITHIN REACH.
--- NOTE | 2016-12-06 01:04 | NUR ---
PT. IN BED LYING ON HER STOMACH WITH EYES CLOSED AND RESP. DEEP AND EVEN. CALL LIGHT WITHIN REACH AND PT'S ABOVE THE BED LIGHT REMAINS ON AT HER REQUEST.
--- NOTE | 2016-12-06 05:09 | NUR ---
PT. IN BED AND IS NOW LYING ON HER BACK WITH LEGS DRAWN UP. EYES ARE CLOSED AND RESP. DEEP AND EVEN. CALL LIGHT WITHIN REACH.
--- NOTE | 2016-12-06 08:07 | NUR ---
PATIENT SITTING UP AT BEDSIDE TO EAT BREAKFAST. CALL LIGHT WITHIN REACH. VOICES NO NEEDS AT THIS TIME. BED ALARM ON. PATIENT IS ALERT/ORIENT X4 WITH SOME FORGETFULNESS NOTED
[2016-12-06 09:02] VITALS: BP 144/66
--- NOTE | 2016-12-06 10:10 | NUR ---
PATIENT IN SHOWER WITH HELP FROM OCCUPATIONAL THERAPIST. LINENS ON BED CHANGED WHILE PATIENT IN SHOWER.
--- NOTE | 2016-12-06 12:00 | NUR ---
GLUCOSE LEVEL 244. EIGHT UNITS OF SLIDING SCALE INSULIN GIVEN
--- NOTE | 2016-12-06 14:20 | NUR ---
PATIENT IS A STAND BY ASST WHEN SHE WALKS WITH A WHEELED WALKER. HELPED INTO BATHROOM. ABLE TO DO ALL JABARI CARE BY SELF
--- NOTE | 2016-12-06 14:48 | NUR ---
SITTING UP FOR BREAKFAST.CL IN REACH
--- NOTE | 2016-12-06 16:50 | NUR ---
GLUCOSE LEVEL 246. EIGHT UNITS OF SLIDING SCALE INSULIN GIVEN
--- NOTE | 2016-12-06 19:27 | NUR ---
PT. IN BED LYING ON HER BACK AND WATCHING TV. ASSESSMENT COMPLETED. PT. REPORTS THAT SHE DOESN'T WANT ANY SLEEPING PILL TONIGHT. INFORMED PT. THAT SHE DOESN'T HAVE ANY SLEEPING MEDICATION ORDERED. REPORTED TO PT. THAT THE ONLY MED. THAT MIGHT MAKE HER SLEEPY IS THE XANAX AND SHE HASN'T HAD ANY OF THAT AT NIGHTTIME. PT. ACKNOWLEDGED THAT SHE UNDERSTOOD. ALSO INFORMED PT. THAT SHE DIDN'T SLEEP SOUNDLY LAST NIGHT SHE HAS IN THE PAST. ASSISTED PT. TO THE BATHROOM TO URINATE AND BACK TO BED AND POSITIONED TO COMFORT. CALL LIGHT WITHIN REACH.
[2016-12-06 20:57] VITALS: BP 178/68
--- NOTE | 2016-12-06 23:11 | NUR ---
PT. IN BED LYING ON HER BACK WITH HOB FLAT. EYES ARE CLOSED AND RESP. DEEP AND EVEN. RIGHT LEG IS PULLED UP AND CROSSED OVER ONTO HER LEFT LEG. CALL LIGHT WITHIN REACH. PT'S ABOVE THE BED LIGHT REMAINS ON AT HER REQUEST.
--- NOTE | 2016-12-07 01:29 | NUR ---
PT. IN BED LYING ON HER BACK WITH EYES CLOSED AND RESP. EVEN. RLE PULLED UP AND CROSSED OVER LLE. PT'S ABOVE THE BED LIGHT REMAINS ON AT HER REQUEST. CALL LIGHT WITHIN REACH.
--- NOTE | 2016-12-07 04:18 | NUR ---
PT. IN BED LYING ON HER BACK WITH EYES CLOSED AND RESP. EVEN. CALL LIGHT WITHIN REACH. PT'S ABOVE THE BED LIGHT REMAINS ON SHE LIKES IT THAT WAY.
--- NOTE | 2016-12-07 07:00 | NUR ---
PT WAS RECEIVED AT THE BEGINNING OF THIS SHIFT IN BED AWAKE AND ORIENTED TO PERSON AND PLACE. NO VOICED COMPLAINTS AT THIS TIME. VITAL SIGNS: TEMP. 98.0, PULSE 80, RESP. 14, B/P 197/86, 02SAT. 98%. WILL BE MONITORING PT. AND ASSISTING PRN WITH ADL'S. NO SIGNS OF ANY PAIN OR DISCOMFORT.
[2016-12-07 08:41] VITALS: BP 197/86
--- NOTE | 2016-12-07 13:50 | NUR ---
PT. REQUESTED SOMETHING FOR LEFT HIP PAIN AROUND 1335 AND RECEIVED A TRAMADOL 50MG AT THAT TIME. SHE WAS IN THE THERAPY GYM AND WAS PARTICIPATING BUT WAS GRIMACING WITH PAIN. WILL BE MONITORING HER COMFORT.
--- NOTE | 2016-12-07 16:22 | NUR ---
SPOKE WITH SON, OJ OR EDER ABOUT DISCHARGE PLANS FOR HIS MOTHER, SHE WILL DISCHARGE HOME WITH HOME HEALTH AND HE WILL HIRE [employer] TO ASSIT HIS MOTHER AT HOME. IF THERE ARE ANY QUESTIONS THAT NEED TO BE ANSWERED ABOUT HIS MOTHER HE REQUEST THAT HE BE CALLED AND IF HIS SISTERS NEED TO BE NOTIFIED HE WILL CALL THEM. PASSED ON TO NURSE. HIS PHONE NUMBER IS [phone]. NUMER OSTED IN CHART
[2016-12-07 18:58] VITALS: BP 175/71
--- NOTE | 2016-12-07 19:54 | NUR ---
PT RECEIVED IN BED WITH EYES CLOSED AND CHEST RISING. NO SIGN/SYMPTOMS OF DISTRESS NOTED. NO CONCERNS NOTED. CALL LIGHT IN REACH.
--- NOTE | 2016-12-08 02:44 | NUR ---
PT IN BED WITH EYES CLOSED AND CHEST RISING. NO SIGN/SYMPTOMS OF DISTRESS. CALL LIGHT IN REACH.
[2016-12-08 07:00] VITALS: BP 139/67
--- NOTE | 2016-12-08 09:55 | NUR ---
PT IS RESTING IN BED WATCHING TV IN BED. NO NEEDS VOICED.
--- NOTE | 2016-12-08 12:01 | NUR ---
PT IS SITTING ON THE SIDE OF HER BED FEEDING HERSELF LUNCH. NO SWALLOW PROBLEMS NOTED. NO NEEDS VOICED.
--- NOTE | 2016-12-08 13:31 | NUR ---
PT IS RESTING IN BED WATCHING TV. NO DISTRESS NOTED.
--- NOTE | 2016-12-08 15:58 | NUR ---
PT RESTING IN BED WITH EYES CLOSED.
--- NOTE | 2016-12-08 18:43 | NUR ---
RESTING QUIETLY IN BED CALL LIGHT IN REACH
--- NOTE | 2016-12-08 21:30 | NUR ---
PT HS MEDS ADMINISTERED. PT ASSISTED TO BR. PT BACK IN BED AND DENIES FURTHER NEEDS. WCTM. BED LOW. CL IN [facility].
--- NOTE | 2016-12-08 22:15 | NUR ---
PT REQ AND REC'D PRN ULTRAM FOR BACK PAIN. WCTM. BED LOW. CL IN REACH.
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
--- NOTE | 2016-12-09 03:15 | NUR ---
PT RESTING, EYES CLOSED. RR ARE EVEN AND UNLABORED. WCTM. BED LOW. CL IN REACH.
--- NOTE | 2016-12-09 05:53 | NUR ---
PT AM MEDS ADMINISTERED. PT DENIES NEEDS. BED LOW. CL IN REACH.
[2016-12-09 07:00] VITALS: BP 119/56
--- NOTE | 2016-12-09 07:45 | NUR ---
LYING ON SIDE.CL IN REACH.NO DISTRESS.
--- NOTE | 2016-12-09 07:45 | NUR ---
PT IS RESTING IN BED WITH EYES OPEN. ALERT AND ORIENTED X 3. DENIES ACUTE PAIN OR DISCOMFORT. SET UP ON THE SIDE OF HER BED TO EAT BREAKFAST. FEEDING SELF WITHOUT DIFFICULTY. SR'S ARE UP X 2 IN BED. CALL LIGHT AND BEDSIDE TABLE ARE WITHIN EASY REACH.
--- NOTE | 2016-12-09 09:44 | NUR ---
PT IS RESTING IN BED WITH EYES OPEN. NO NEEDS VOICED.
--- NOTE | 2016-12-09 12:01 | NUR ---
PT IS FEEDING SELF LUNCH IN HER ROOM. NO DISTRESS NOTED.
--- NOTE | 2016-12-09 15:00 | NUR ---
PT IS RESTING IN BED WITH EYES CLOSED. RESPS ARE EVEN AND UNLABORED. NO ACUTE DISTRESS NOTED.
--- NOTE | 2016-12-09 22:58 | NUR ---
PT RECEIVED IN BED WITH EYES OPEN WATCHING TV. NO SIGN/SYMPTOMS OF DISTRESS NOTED. COMPLAINS OF PAIN TO RIGHT SIDE OF CHEST DUE TO FRACTURES. STATES SHE ALSO HAS FRACTURES TO PELVIS AND LEFT CLAVICLE. PT TRANSFERED TO WHEELCHAIR AND TO TOILET CAUTIOUSLY DUE TO DISCOMFORT. PT WITH URINARY OUTPUT. GRIER WAS D/C'D DURING PREVIOUS SHIFT. NO OTHER NEEDS OR CONCERNS MADE KNOWN. CALL LIGHT IN REACH.
--- NOTE | 2016-12-09 23:16 | NUR ---
PT RECEIVED IN BED WITH EYES OPEN. NO NEEDS OR CONCERNS MADE KNOWN AT THIS TIME. CALL LIGHT IN REACH.
[2016-12-10 00:10] VITALS: BP 129/51
--- NOTE | 2016-12-10 02:33 | NUR ---
PT IN BED WITH EYES OPEN. COMPLAINS OF SHOULDER PAIN 5/10. PRN PAIN MEDICATION GIVEN PER OCT. PT ALSO REQUEST SNACK WITH JELLO AND FRANCES CRACKERS GIVEN. NO OTHER NEEDS MADE KNOWN. CALL LIGHT IN REACH.
[2016-12-10 06:18] LABS: BASOPHILS 0.4 % (0.0-2.0); EOSINOPHILS 4.8 % (0-7); HEMATOCRIT 37.8 % (36.0-48.0); HEMOGLOBIN 12.4 g/dL (12-16); IMMATURE GRANULOCYTES 0.2 % (0-5); LYMPHOCYTES 21.5 % (15-50); MCH 29.5 pg (26.0-34.0); MCHC 32.8 g/dL (31.0-37.0); MEAN PLATELET VOLUME 10.9 fL (7.4-10.4); MONOCYTES 9.5 % (2-11); NEUTROPHILS 63.6 % (40-80); PLATELET COUNT 259 10x3/uL (130-400); RDW 13.2 % (11.5-14.5); WBC 4.8 10x3/uL (4.8-10.8)
[2016-12-10 06:34] LABS: ANION GAP 9.9 mmol/L (8-16); CARBON DIOXIDE 30.2 mmol/L (21.0-32.0); CREATININE - SERUM 0.8 mg/dL (0.6-1.3); POTASSIUM - SERUM 4.1 mmol/L (3.5-5.1)
--- NOTE | 2016-12-10 07:30 | NUR ---
RESTING QUIETLY IN BED CALL LIGHT IN REACH
--- NOTE | 2016-12-10 07:33 | NUR ---
PT IN BED WITH EYES OPEN. RECEIVED MEDICATIONS PER MAR WITHOUT DIFFICULTY. CALL LIGHT IN REACH.
--- NOTE | 2016-12-10 08:00 | NUR ---
PATIENT ALERT/ORIENT X4 WITH FORGETFULNESS NOTED AT TIMES. CALL LIGHT WITHIN REACH. VOICES NO NEEDS AT THIS TIME.
[2016-12-10 08:13] VITALS: BP 137/62
--- NOTE | 2016-12-10 10:00 | NUR ---
PATIENT IN REHAB ROOM, WORKING WITH PHYSICAL THERAPIST. DENIES ANY PAIN/DISC
--- NOTE | 2016-12-10 11:20 | NUR ---
PATIENT RESTING WITH EYE CLOSE, RESPIRATION REGULAR AND EVEN.BED IN LOW POSITION, CALL LIGHT WITHIN REACH.
--- NOTE | 2016-12-10 11:55 | NUR ---
GLUCOSE LEVEL 193. FOUR UNITS OF SLIDING SCALE INSULIN GIVEN
--- NOTE | 2016-12-10 18:39 | NUR ---
PATIENT LYING IN BED. VOICES NO NEEDS. BED ALARM ON. CALL LIGHT WITHIN REACGH
--- NOTE | 2016-12-10 19:20 | NUR ---
PATIENT AWAKE, ALERTED. SPEAK CLEAR, LUNG SOUND CLEAR, HEART RATE REGULAR. ASSISTED TO BATH ROOM.
[2016-12-10 20:26] VITALS: BP 157/70
--- NOTE | 2016-12-10 21:20 | NUR ---
PATIENT IN BED RESTING QUIETLY, RES EVEN AND REGULAR. BED IN LOW POSITION, CALL WITHIN REACH.
--- NOTE | 2016-12-10 23:20 | NUR ---
PATIENT RESTING WITH EYE CLOSE, RESPIRATION REGULAR AND EVEN.BED IN LOW POSITION, CALL LIGHT WITHIN REACH.
--- NOTE | 2016-12-11 00:05 | NUR ---
RESTING QUIETLY IN BED, EYES CLOSED.
--- NOTE | 2016-12-11 02:30 | NUR ---
PATIENT AWAKE, ALERTED. ASSITING TO BATH ROOM. C/O OF SHOULDER AND HIP PAIN, AT A SCALE OF 5, PAIN PILL JARED,SEE EMAR.
--- NOTE | 2016-12-11 04:13 | NUR ---
PATIENT STATE PAIN ARE RELIEF, HAVE A GOOD SLEEP. CONTINUE RESTING IN BED, WITH EYE CLOSE.
[2016-12-11 08:00] VITALS: BP 121/56
--- NOTE | 2016-12-11 08:20 | NUR ---
PT RESTING IN BED WITH EYES OPEN CALL LIGHT IN REACH EATING BREAKFAST TOLERATING WELL WILL MONITER
--- NOTE | 2016-12-11 10:03 | NUR ---
Nutrition Follow Up: Pt was in therapy at the time of RD visit. Chart reviewed. Pt is eating 83% meal avg on a diabetic diet. +BM 12/10/16. No new wt to assess. Labs noted - Glucose elevated at times. Meds noted including Humalog, Lantus. Pt with good po intake at this time. Rec continue current diet. RD following.
--- NOTE | 2016-12-11 14:42 | NUR ---
PT UP IN WHEELCHAIR IN THERAPY NO PROBLEMS NOTED WILL MONITER
[2016-12-11 19:14] VITALS: BP 138/80
--- NOTE | 2016-12-11 21:10 | NUR ---
PT AWATE, ALERT. CLEAR SPEECH. LUNG SOUND CLEAR, HEART REGULAR AND EVEN. ASSITED TO BATH ROOM.
--- NOTE | 2016-12-12 07:56 | NUR ---
PT SITTING ON SIDE OF BED EATING BREAKFAST TOLERATING WELL WILL MONITER
[2016-12-12 09:08] VITALS: BP 141/63
--- NOTE | 2016-12-12 09:15 | NUR ---
PATIENT DISCHARGING HOME TODAY WITH [facility]. PATIENT HAS ALL DME THAT IS NEEDED. 12/20/16 @ 10:10. PATIENT CHOICE FORM FOR HOME HEALTH AND [facility] FORM SIGNED, EXPLAINED AND FILED IN CHART. SON IS ARRANGING FOR PRIVATE CARE AT HOME. PATIENT EDUCATED ON SAFETY WHEN AMBULATING.
--- NOTE | 2016-12-12 11:16 | NUR ---
RESTING QUIETLY IN BED.CL IN REACH.
--- NOTE | 2016-12-12 13:30 | NUR ---
PT DISCHARGED TO HOME VIA WHEELCHIAR WITH EMPLOYEE OF THE INDEP[facility] LIVING WHERE SHE LIVES DISCHARGE MEDS AND SUMMARY REVIEWED WITH PT NO QUESTIONS MEDS CALLED TO [facility]
== END 2016-12-12 15:43 | disposition home health service (06) | DRG 561 ==
LOC: D.REHAB 11:55
PROVIDERS: ADMIT Emergency Medicine
DX: S32.019D Unspecified fracture of first lumbar vertebra, subsequent encounter for fracture with routine healing (principal); M48.06 Spinal stenosis, lumbar region; E11.65 Type 2 diabetes mellitus with hyperglycemia; G62.9 Polyneuropathy, unspecified; E03.9 Hypothyroidism, unspecified; H35.30 Unspecified macular degeneration; H40.9 Unspecified glaucoma; R53.1 Weakness; F32.9 Major depressive disorder, single episode, unspecified; I10 Essential (primary) hypertension; E78.5 Hyperlipidemia, unspecified; M81.0 Age-related osteoporosis without current pathological fracture; Z86.73 Personal history of transient ischemic attack (TIA), and cerebral infarction without residual deficits; K21.9 Gastro-esophageal reflux disease without esophagitis

== ENCOUNTER 2016-12-15 14:44 | Inpatient (IN) | payer MEDICARE, BC ==
[~2016-12-15] VITALS: Ht 162.6 cm; Wt 55.8 kg
[~2016-12-15 14:44] MED LIST changes: +HUMULIN R100 U/ML SC; +LANTUS INSULIN10 ML SQ
[2016-12-15 16:02] LABS: BASOPHILS 0.2 % (0.0-2.0); EOSINOPHILS 2.6 % (0-7); HEMATOCRIT 39.1 % (36.0-48.0); HEMOGLOBIN 13.1 g/dL (12-16); IMMATURE GRANULOCYTES 0.2 % (0-5); LYMPHOCYTES 14.8 % (15-50); MCHC 33.5 g/dL (31.0-37.0); MCV 89.7 fL (80.0-100.0); MEAN PLATELET VOLUME 10.6 fL (7.4-10.4); MONOCYTES 12.2 % (2-11); PLATELET COUNT 290 10x3/uL (130-400); RBC 4.36 10x6/uL (4.00-5.40); RDW 13.1 % (11.5-14.5); WBC 5.1 10x3/uL (4.8-10.8)
[2016-12-15 16:13] LABS: KETONE - SERUM NEGATIVE (NEGATIVE)
[2016-12-15 16:26] LABS: ALBUMIN 3.1 g/dL (3.4-5.0); ALKALINE PHOSPHATASE 79 U/L (46-116); ALT (SGPT) 20 U/L (10-68); BILIRUBIN - TOTAL 0.46 mg/dL (0.2-1.3); CALC OSMOLALITY 283 mosm/kg (275-300); CALCIUM 9.1 mg/dL (8.5-10.1); CARBON DIOXIDE 28.1 mmol/L (21.0-32.0); CHLORIDE - SERUM 101 mmol/L (98-107); CREATININE - SERUM 1.1 mg/dL (0.6-1.3); GLUCOSE 217 mg/dL (74-106); MAGNESIUM - SERUM 1.7 mg/dL (1.8-2.4); POTASSIUM - SERUM 4.2 mmol/L (3.5-5.1); PROTEIN - SERUM 7.2 g/dL (6.4-8.2); SODIUM 136 mmol/L (136-145); UREA NITROGEN 27 mg/dL (7-18); eGFR NON AFRICAN AMERICAN 50 mL/min (90-120)
[2016-12-15 16:27] LABS: ALCOHOL - BLOOD (MEDICAL) < 3.0 mg/dL (0.0-10.0)
[2016-12-15 16:55] LABS: UDS - AMPHET NEGATIVE QUAL (NEGATIVE); UDS - BARB NEGATIVE QUAL (NEGATIVE); UDS - BENZO NEGATIVE QUAL (NEGATIVE); UDS - COCAINE NEGATIVE QUAL (NEGATIVE); UDS - METH NEGATIVE QUAL (NEGATIVE); UDS - OPIATE NEGATIVE QUAL (NEGATIVE); UDS - PCP NEGATIVE QUAL (NEGATIVE); UDS - THC NEGATIVE QUAL (NEGATIVE)
[2016-12-15 16:58] LABS: APPEARANCE CLEAR (CLEAR); BACTERIA FEW /hpf (NONE SEEN); BILIRUBIN NEGATIVE (NEGATIVE); COLOR YELLOW (YELLOW); GLUCOSE 1000 mg/dL (NEGATIVE); KETONE NEGATIVE (NEGATIVE); LEUKOCYTE ESTERASE TRACE (NEGATIVE); MUCUS <1+ /lpf (NONE SEEN); NITRITE NEGATIVE (NEGATIVE); PROTEIN NEGATIVE (NEGATIVE); SPECIFIC GRAVITY 1.015 (1.005-1.020); UROBILINOGEN NORMAL (NORMAL); WHITE CELLS - URINE 0-5 /hpf (0-5)
[2016-12-15 16:59] LABS: RED CELLS - URINE RARE /hpf (0-5)
--- NOTE | 2016-12-16 00:15 | NUR ---
ARRIVED TO UNIT PER WHEELCHAIR ACCOMPANIED PER ADMISSION STAFF AND A DAUGHTER. AWAKE AND ORIENTED X 3. STATES SHE HAS "CHRONIC LOWER BACK PAIN WITH LEFT SHOULDER PAIN." DX: DEMENTIA WITH BEHAVIORAL DISTURBANCES. ASSESSMENT COMPLETE. ORIENTED TO UNIT. PATIENT LIVES ALONE. FAMILY CONCERNED ABOUT RECENT CHANGES IN BEHAVIOR, INCREASED AGITATION AND PARANOIA, DOESN'T WANT TO LIVE, IF NO ONE WILL LISTEN TO WHAT SHE WANTS. VS TAKEN AND RECORDED. B/P 159/100, P 77, R 18, O2 SAT 98%. VNQU=153.
[2016-12-16 07:00] VITALS: BP 154/79
[2016-12-16] MEDS ORDERED: ULTRAM50 MG PO (07:00)
[2016-12-16 08:51] LABS: HEMOGLOBIN A1C 9.9 % (4.8-6.0)
[2016-12-16 13:54] VITALS: BP 154/79
--- NOTE | 2016-12-16 15:08 | NUR ---
PATIENT WAS RECIEVED LYING ON COUCH IN DAYROOM. COMPLAINTS OF CHRONIC PAIN. 10/10 ON PAIN SCALE, HEAT, REPOSITIONING AND MEDICATION WAS USED TO ELIVIATE PAIN. PAIN HAS REMAINED 10/10. PATIENT IS LAYING ON COUCH RESTING. CONTINUE TO MONITOR
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
[2016-12-16 19:30] VITALS: BP 152/80
[2016-12-16 23:17] VITALS: BP 152/80
--- NOTE | 2016-12-17 03:44 | NUR ---
B) Recieved patient in the day room, alert and oriented X 3, calm and cooperative with assessment and care, complains of cronic back and shoulder pain 06/11, I) Administered perscribed medications, PRN Tramadol 50 mg given at 2115 for back pain, R) medication compliant, resting in bed eyes closed, P) Continue plan of care, continue to monitor.
[2016-12-17 07:00] VITALS: BP 155/60
[2016-12-17 09:54] VITALS: BP 155/60
[2016-12-17 14:42] VITALS: Ht 162.6 cm; Wt 55.8 kg
--- NOTE | 2016-12-17 14:54 | NUR ---
B.) Alert and oriented times three, states reason for being here as " my children wanted me here." I.) Administer medications and monitor compliance. monitor for any suicidial ideations and contract for safety. Encourage group participation. Encourage verbalization of feelings. Maintain safety. P.) Continue plan of care.
[2016-12-17 15:06] LABS: CHOL - HDL RATIO 4.2 ratio (2.3-4.1); LDL-HDL RATIO 2.6 ratio (1.5-3.5)
[2016-12-17 19:30] VITALS: BP 145/65
--- NOTE | 2016-12-17 20:08 | NUR ---
RECEIVED IN DAYROOM. SITTING IN CHAIR WITH EYES OPEN WATCHING TV. CALM AND COOPERATIVE WITH CARE AND ASSESSMENTS. NO T SOCIALIZING WITH STAFF OR PEERS. ENCOURAGE TO EXPRESS NEEDS. CONTINUES TO SIT QUIETLY IN CHAIR. CONTINUE PLAN OF CARE
--- NOTE | 2016-12-18 14:16 | PSY ---
PATIENT NAME:RAJI DOW MEDICAL RECORD: [id number] : 32 LOCATION:[facility] ADMISSION DATE: 12/15/16 ACCOUNT: [id number] PSYCHIATRIC EVALUATION DATE OF EVALUATION: 12/17/16 Psychiatric Evaluation IDENTIFYING DATA: The patient is 86 years old and she is admitted to the hospital on a voluntary basis. CHIEF COMPLAINT: "My family won't leave me alone." HISTORY OF PRESENT ILLNESS: The patient presented to the Emergency Room Saturday night reporting suicidal thoughts. She denies this now. She does endorse depressive symptoms and relates it to her children whom she describes as being overly intrusive. She said they are wanting her to leave her home and she does not want to. This is purely her perspective. I have not been spoken to the children yet. She says that she has had some falls and that she has not taken her medicine as she should, but that she is going to start doing so. She wants to stay in her home. PAST MEDICAL HISTORY: Significant for macular degeneration, hypertension, diabetes and hypothyroidism. PAST PSYCHIATRIC HISTORY: Significant for 1 previous psychiatric hospitalization decades ago, it was brief and related to depression. She has been taking antidepressant medicines on an outpatient basis for a long time. FAMILY HISTORY: Unknown. ALLERGIES: PENICILLIN, SULFUR AND CODEINE. CURRENT MEDICATIONS: Include Synthroid, insulin, tramadol, Cymbalta, Xanax, Norvasc and Cozaar. SOCIAL HISTORY: The patient was twice and has 3 children from her first marriage and 1 from her second. Three of the children live in this area. She has been for a long time. 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 MENTAL STATUS EXAMINATION: The patient is awake, alert and oriented to person, place, time and situation. Her mood is depressed. Her affect is constricted. Thought processes are circumstantial. Memory, concentration and abstraction abilities are moderately impaired and she denies any intent to harm herself or others as well as overt psychotic symptoms. ASSETS: Supportive family members. LIABILITIES: Limited insight. DIAGNOSTIC IMPRESSION: AXIS I: Major depression, moderate severity without psychotic features. Rule out dementia. AXIS II: Deferred. AXIS III: Hypertension, hypothyroidism, diabetes and macular degeneration. AXIS IV: Moderate stressors. AXIS V: Global assessment of functioning is 35. PLAN: At this time, the patient is admitted to the hospital on a voluntary basis. She will be seen by Dr. Kaylan Tao for neuropsychological testing. Her long-term prognosis is guarded. Brief supportive and educational interventions were made. TRANSINT:[id number] Voice Confirmation ID: [id number] DOCUMENT ID: [id number] AME TORRES MD at 1416 CC: [id number] DICTATION DATE: 12/17/161421 FRENCH DRAWER: 12/17/16 2309 ADM IN [facility] [address] [place] [address]
--- NOTE | 2016-12-18 18:39 | NUR ---
PATIENT SITTING ON COUCH IN DAYROOM, VISITING WITH FAMILY. PATIENT IS PLEASANT AND CALM. CONTINUE TO MONITOR.
[2016-12-18 19:52] VITALS: BP 157/74
--- NOTE | 2016-12-18 20:14 | NUR ---
RECEIVED IN DAYROOM. LAYING ON SOFA WATCHING TV. ALERT AND ORIENTED. CALM AND COOPERATIVE WITH CARE AND ASSESSMENTS. ENCOURAGE TO EXPRESS NEEDS. ENCOURAGE TO ASK FOR ASSIST. CONTINUES TO LAY QUIETLY ON SOFA. CONTINUE PLAN OF CARE
[2016-12-19 08:00] VITALS: BP 139/57
--- NOTE | 2016-12-19 12:00 | PN ---
PATIENT:RAJI DOW MEDICAL RECORD: [id number] LOCATION:[facility] ADMISSION DATE: 12/15/16 PROGRESS NOTE DATE OF SERVICE: 12/18/2016 SUBJECTIVE: The patient's case was discussed with staff. She has no new complaint. OBJECTIVE: The patient is in good behavioral control. She has no aggressive behaviors. She is tolerating her medicines well. ASSESSMENT: No change in diagnoses. PLAN: Current medicines have been reviewed and will be maintained. Long-term prognosis is guarded. I have spoken to the patient's family who want her to go to a [place]. The patient does not want to go to a [place]. She was tested by Dr. Kaylan Gibbs and scored in the mild cognitive impairment range and even though she may be making a bad decision there is no mental health reason I could say that she cannot make her own decisions. I have discussed this with both daughters and the son on a conference call. They are certainly happier their mother does not have dementia, but there also frustrated about how to make sure she gets the care she needs. I am going to recommend to her and very strong clinical terms that she except 24-hour day care either at home or in a [place]. TRANSINT:[id number] Voice Confirmation ID: [id number] DOCUMENT ID: [id number] AME TORRES MD at 1200 CC: [id number] DICTATION DATE: 12/18/16 1423 REGISTERED NURSE CARDIOVASCULAR ICU: 12/18/16 2317 ADM IN [id number] [place] [address]
[2016-12-19] MEDS ORDERED: COZAAR50 MG PO (12:18)
[2016-12-19] MEDS ORDERED: NORVASC5 MG PO (12:18)
[2016-12-19] MEDS ORDERED: ULTRAM50 MG PO (12:19)
[2016-12-19] MEDS ORDERED: ACETAMINOPHEN500 M1 PO (12:20)
--- NOTE | 2016-12-19 14:21 | NUR ---
Alert and oriented times four, calm and cooperative with care. Administer medications and monitor compliance. Socializes appropriately with others with no behavior changes. Compliant with medications. Ambulatory with walker. Fall precautions in place and safety maintained. Participates in group. Plans for discharge today, patient son has made arrangement for a friend Gabrielle to pick patient up. Continue with plan of care and plans for discharge today.
--- NOTE | 2016-12-19 18:55 | NUR ---
Patient ready for discharge, discharge instructions given, prescriptions were called to [facility] pharmacy, patient states she already has an appointment scheduled with Dr. Purvis on 12/20/16 she will call for exact time, if not she will schedule follow up appointment. All personal belonging and valuables realeased to patient. Discharged without incident home, per family.
--- NOTE | 2016-12-20 15:04 | PN ---
PATIENT:RAJI DOW MEDICAL RECORD: [id number] LOCATION:[facility] ADMISSION DATE: 12/15/16 PROGRESS NOTE DATE OF SERVICE: 12/19/2016 SUBJECTIVE: The patient's case was discussed with staff. She has no new complaint. OBJECTIVE: The patient is in good behavioral control with limited insight about her condition. She tolerates her medicines well. She is going to go home with home health and a home [employer] assistant helping her. She does not want to go to a long term. She will be discharged today. Followup will be with Dr. Purvis. She has no evidence of acute or direct dangerousness. TRANSINT:[id number] Voice Confirmation ID: [id number] DOCUMENT ID: [id number] AME TORRES MD at 1504 CC: [id number] DICTATION DATE: 12/19/16 1218 DIRECTOR VIDEO: 12/19/16 2147 DIS IN 12/19/16 [id number] [place] [address]
== END 2016-12-19 18:55 | disposition home or self-care (01) | DRG 884 ==
LOC: D.ER 14:44 → D.PSYCH 22:07
PROVIDERS: Physician Assistant; ADMIT Psychiatry & Neurology Psychiatry
DX: F03.91 Unspecified dementia, unspecified severity, with behavioral disturbance (principal); F32.1 Major depressive disorder, single episode, moderate; I69.354 Hemiplegia and hemiparesis following cerebral infarction affecting left non-dominant side; E11.9 Type 2 diabetes mellitus without complications; Z79.4 Long term (current) use of insulin; I10 Essential (primary) hypertension; K59.00 Constipation, unspecified; Z91.81 History of falling; Z74.09 Other reduced mobility; E83.42 Hypomagnesemia; M41.9 Scoliosis, unspecified; E03.9 Hypothyroidism, unspecified